=== PATIENT | male | born 2000 ===

== ENCOUNTER 2024-05-21 14:27 | Emergency (ER) | payer OTHER, SELFPAY ==
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
[2024-05-21 14:29] VITALS: BP 103/58; PULSE 66; RESP 18; TEMP 36.6; O2SAT 99; BMI 20.4
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
[2024-05-21] MEDS: Ibuprofen 600 MG TABLET PO (16:57)
--- NOTE | 2024-05-21 17:03 | PC.NURSE ---
medicated for pain, he is resting with bilateral extremities elevated. awaiting disposition from provider
[2024-05-21 17:05] VITALS: BP 105/66; PULSE 62; RESP 18; TEMP 36.9; O2SAT 99
[2024-05-21 17:54] VITALS: BP 105/66; PULSE 62; RESP 18; TEMP 36.9; O2SAT 99
== END 2024-05-21 18:16 | disposition home or self-care (01) ==
PROVIDERS: Emergency Provider Emergency Medicine
DX: S86.911A Strain of unspecified muscle(s) and tendon(s) at lower leg level, right leg, initial encounter (principal); V43.62XA Car passenger injured in collision with other type car in traffic accident, initial encounter; Y93.9 Activity, unspecified; Y92.415 Exit ramp or entrance ramp of street or highway as the place of occurrence of the external cause; Y99.9 Unspecified external cause status; M79.671 Pain in right foot; M25.561 Pain in right knee
CPT/HCPCS: 73562; 73630; 99283; 99284

== ENCOUNTER → 2024-06-10 14:16 | Outpatient (BNVA) | payer OTHER, SELFPAY | PROVIDERS: Visit Provider Physician Assistant ==